=== PATIENT | male | born 1965 | race Caucasian/White ===

== ENCOUNTER 2016-08-18 19:31 | Emergency (ER) | payer OTHER ==
--- NOTE | 2016-08-18 20:47 | EDPHY ---
H & P Smoking Status: Former smoker Time Seen by Provider: 08/18/16 20:31 HPI/ROS: CHIEF COMPLAINT: Blurry vision HISTORY OF PRESENT ILLNESS: Patient is had what he terms blurry vision for the last week. It is associated with worsening when he looks right and some double vision, associated with a headache which is global and worse when his vision is not well focused. It is not associated with pain in his eye or fever. No recent trauma and no neck pain. Symptoms moderate in nature. REVIEW OF SYSTEMS: Eye: no change in vision ENT: no sore throat Cardiac: no chest pain or syncope Pulmonary: no cough or SOB Abdomen: no vomiting, diarrhea, abdominal pain Musculoskeletal: no back pain Skin: no rash Neuro: HPI, just 2 hours ago he started having numbness in the 4 fingers of his right hand Constitutional: no fever : no urinary symptoms A comprehensive 10 point review of systems is otherwise negative aside from elements mentioned in the history of present illness. PAST MEDICAL HISTORY: Diabetes Social history: Nonsmoker General Appearance: Alert and conversant, cooperative. Eyes: No scleral icterus. Patient has a right lateral rectus palsy as his right pupil does not track laterally past midline. ENT, Mouth: Normal mucous membranes. Respiratory: Normal respiratory effort, breath sounds equal, lungs are clear to auscultation. Cardiovascular: Regular rate and rhythm. Gastrointestinal: Abdomen is soft and non tender. Neurological: Alert and oriented x3. Normally conversant. Face symmetric, normal movement and sensation in all extremities. Skin: Warm and dry, no rashes. Musculoskeletal: No peripheral edema and no joint swelling. Psychiatric: Not agitated. Emergency Department course/MDM: Plan for MRI to evaluate for stroke or aneurysm intracranially. EKG noted to be abnormal but no ischemic symptoms and negative troponin. 2229: Still awaiting arrival of MRI. 224: Discussed with Dr. 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 Signed out to Jamal at 2300 with MRI pending. (Duc Vazquez) Constitutional: Initial Vital Signs Temperature (C) 37.0 C 08/18/16 19:34 Heart Rate 89 08/18/16 19:34 Respiratory Rate 16 08/18/16 19:34 Blood Pressure 171/94 H 08/18/16 19:34 O2 Sat (%) 97 08/18/16 19:34 O2 Delivery Mode Room Air Allergies/Adverse Reactions: No Known Allergies Allergy (Verified 08/18/16 19:36) Home Medications: Medication Instructions Recorded metFORMIN HCL [Glucophage] 500 mg PO BID #20 tab 03/10/10 Levemir 02/16/16 Medical Decision Making - Diagnostics EKG Interpretation: 12-lead EKG interpreted by me; official reading is in trace master. My interpretation is sinus rhythm with inferior Q-waves and nonspecific anterior ST T T-wave changes. (Duc Vazquez) ED Course/Re-evaluation: I assumed care of this patient at change of shift. He was stable throughout his ED course. MRI MRA of brain was performed and interpreted by Dr. Islas. There were no acute findings to explain the patient's symptomatology. A small aneurysm in the [place] could not be excluded. I met with the patient and I discussed the findings of his MRI. I explained that his symptoms are due to a peripheral neuropathy from his diabetes. He says his blood sugars have been elevated lately. He has also stopped taking his insulin because he was unsure if the insulin was the cause of his symptoms. I have instructed him to resume his insulin and follow up with his primary care provider. He is also given information for Neurology. I explained to him that he will likely need a repeat MRI in 1 year which is PMD can arrange for if necessary. (Angeli Berry) Differential Diagnosis: Differential considered including but not limited to ischemic stroke, intracranial mass, intracranial bleed, venous thrombosis, microvascular disease (Duc Vazquez) - Data Points Laboratory Results: Laboratory Results 08/18/16 20:50 08/18/16 20:50 08/18/16 08/18/16 08/18/16 20:55 20:50 20:50 WBC RBC Hgb POC Hgb 16.0 gm/dL gm/dL (14.5-17.3) Hct POC Hct 47 % % (42.8-50.6) MCV MCH MCHC RDW Plt Count MPV Neut % (Auto) Lymph % (Auto) [place] % (Auto) Eos % (Auto) Baso % (Auto) Nucleat RBC Rel Count Absolute Neuts (auto) Absolute Lymphs (auto) Absolute Monos (auto) Absolute Eos (auto) Absolute Basos (auto) Absolute Nucleated RBC Immature Gran % Immature Gran # POC Sodium 140 mEq/L mEq/L (134-144) Sodium 139 mEq/L mEq/L (134-144) POC Potassium 3.8 mEq/L mEq/L (3.3-5.0) Potassium 4.2 mEq/L mEq/L (3.5-5.2) POC Chloride 103 mEq/L mEq/L (96-108) Chloride 107 mEq/L mEq/L (97-110) Carbon Dioxide 21 mEq/l L mEq/l (22-31) Anion Gap 11 mEq/L mEq/L (8-16) POC BUN 15 mg/dL mg/dL (7-23) BUN 14 mg/dL mg/dL (7-23) Creatinine 0.8 mg/dL mg/dL (0.7-1.3) POC Creatinine 0.9 mg/dL mg/dL (0.8-1.5) Estimated GFR > 60 Glucose 186 mg/dL H mg/dL (70-100) POC Glucose 186 mg/dL H mg/dL (70-100) Calcium 9.3 mg/dL mg/dL (8.5-10.4) Troponin I < 0.012 ng/mL ng/mL (0-0.034) 08/18/16 20:50 WBC 6.99 10^3/uL 10^3/uL (3.80-9.50) RBC 4.95 10^6/uL 10^6/uL (4.40-6.38) Hgb 15.8 g/dL g/dL (13.7-17.5) POC Hgb Hct 43.8 % % (40.0-51.0) POC Hct MCV 88.5 fL fL (81.5-99.8) MCH 31.9 pg pg (27.9-34.1) MCHC 36.1 g/dL g/dL (32.4-36.7) RDW 12.5 % % (11.5-15.2) Plt Count 251 10^3/uL 10^3/uL (150-400) MPV 10.3 fL fL (8.7-11.7) Neut % (Auto) 48.5 % % (39.3-74.2) Lymph % (Auto) 37.2 % % (15.0-45.0) [place] % (Auto) 9.3 % % (4.5-13.0) Eos % (Auto) 4.0 % % (0.6-7.6) Baso % (Auto) 0.9 % % (0.3-1.7) Nucleat RBC Rel Count 0.0 % % (0.0-0.2) Absolute Neuts (auto) 3.39 10^3/uL 10^3/uL (1.70-6.50) Absolute Lymphs (auto) 2.60 10^3/uL 10^3/uL (1.00-3.00) Absolute Monos (auto) 0.65 10^3/uL 10^3/uL (0.30-0.80) Absolute Eos (auto) 0.28 10^3/uL 10^3/uL (0.03-0.40) Absolute Basos (auto) 0.06 10^3/uL 10^3/uL (0.02-0.10) Absolute Nucleated RBC 0.00 10^3/uL 10^3/uL (0-0.01) Immature Gran % 0.1 % % (0.0-1.1) Immature Gran # 0.01 10^3/uL 10^3/uL (0.00-0.10) POC Sodium Sodium POC Potassium Potassium POC Chloride Chloride Carbon Dioxide Anion Gap POC BUN BUN Creatinine POC Creatinine Estimated GFR Glucose POC Glucose Calcium Troponin I Point of Care Test Results: 08/18/16 20:55 POC Sodium 140 POC Potassium 3.8 POC Chloride 103 POC BUN 15 POC Creatinine 0.9 POC Glucose 186 H Departure - Departure Disposition: Home, Routine, Self-Care Clinical Impression: Peripheral neuropathy due to metabolic disorder, Vision changes, Diabetes Condition: Good Instructions: Diabetic Peripheral Neuropathy (ED) Additional Instructions: The changes in your vision are related to your diabetes. They should improve over time. You should follow up with your regular doctor in the next few days. You have also been given the information for Neurology. You should call their office for a follow-up appointment. He will probably need a repeat MRI in 1 year. Referrals: LUISA PATIÑO [Other] - As per Instructions Gonzalo Acevedo MD [Medical Doctor] - As per Instructions
[2016-08-18 21:11] LABS: % IMMATURE GRANULYOCYTES 0.1 % (0.0-1.1); ABSOLUTE IMMATURE GRANULOCYTES 0.01 10^3/uL (0.00-0.10); ADD DIFF? NO; ADD MORPH? NO; ADD SCAN? NO; ATYPICAL LYMPHOCYTE FLAG 10 (0-99); FRAGMENT RBC FLAG 0 (0-99); HEMATOCRIT 43.8 % (40.0-51.0); HEMOGLOBIN 15.8 g/dL (13.7-17.5); LEFT SHIFT FLG 0 (0-99); LIPEMIA HEMOLYSIS FLAG 90 (0-99); MEAN CELL HEMOGLOBIN 31.9 pg (27.9-34.1); MEAN CELL HEMOGLOBIN CONCENTR. 36.1 g/dL (32.4-36.7); MEAN CELL VOLUME 88.5 fL (81.5-99.8); MEAN PLATELET VOLUME 10.3 fL (8.7-11.7); PLATELET CLUMPS FLAG 0 (0-99); PLATELET COUNT 251 10^3/uL (150-400); RED BLOOD CELL COUNT 4.95 10^6/uL (4.40-6.38); RED CELL DISTRIBUTION WIDTH 12.5 % (11.5-15.2)
[2016-08-18 21:22] LABS: ANION GAP 11 mEq/L (8-16); CALCIUM 9.3 mg/dL (8.5-10.4); CARBON DIOXIDE 21 mEq/l (22-31); CHLORIDE 107 mEq/L (97-110); CREATININE 0.8 mg/dL (0.7-1.3); GLOMERULAR FILTRATION RATE > 60; GLUCOSE 186 mg/dL (70-100); POTASSIUM 4.2 mEq/L (3.5-5.2); SODIUM 139 mEq/L (134-144)
--- NOTE | 2016-08-18 21:22 | CPEKG ---
Heart Rate: 78 RR Interval: 769 P-R Interval: 172 QRSD Interval: 98 QT Interval: 372 QTC Interval: 424 P [place]: 35 QRS [place]: 60 T Wave [place]: 8 EKG Severity - ABNORMAL ECG - EKG Impression: SINUS RHYTHM EKG Impression: PROBABLE INFERIOR INFARCT, AGE INDETERMINATE EKG Impression: ANTERIOR INFARCT, AGE INDETERMINATE Electronically Signed By: Duc Vazquez 18-Aug-2016 21:34:12
[2016-08-19 00:42] VITALS: BP 151/97; PULSE 73; RESP 12; TEMP 98.1; O2SAT 96
== END 2016-08-19 00:42 | disposition home or self-care (01) ==
DX: H53.8 Other visual disturbances (principal); G62.9 Polyneuropathy, unspecified; E11.9 Type 2 diabetes mellitus without complications; Z79.84 Long term (current) use of oral hypoglycemic drugs; Z87.891 Personal history of nicotine dependence
CPT/HCPCS: 82947-QW